=== PATIENT | female | born 1965 | race Two or more races ===

== ENCOUNTER → 2025-01-31 | Outpatient (CLI) | payer MEDICAID, SELFPAY ==
--- NOTE | 2025-01-31 14:15 | XR_ITS ---
Examination: Screening digital mammography, bilateral Computer aided detection 3-D breast Tomosynthesis, bilateral Date and time of exam: January 31, 2025 at 1348 hrs. Comparison May 06, 2016 Indication: Screening Technique: Nonmagnified MLO, CC views of the breasts to been obtained, reconstructed from 3-D Tomosynthesis images. R2 computer aided detection program utilized for evaluation of suspicious masses and/or abnormal calcifications. 3-D Tomosynthesis images obtained. Findings: The breasts are heterogeneously dense, which may appears small masses 25 mm focal asymmetry lower outer right breast anterior depth Grouped microcalcifications retroareolar region left breast Impression: BI-RADS Category 0: Incomplete: Need additional imaging evaluation Recommend follow-up spot tomographic views focal asymmetry lower outer right breast anterior depth, bilateral breast sonography to complete the workup Recommend follow-up spot magnification films of grouped microcalcifications retroareolar region left breast
== END | disposition home or self-care (01) ==
DX: Z12.31 Encounter for screening mammogram for malignant neoplasm of breast (principal); N64.89 Other specified disorders of breast; R92.8 Other abnormal and inconclusive findings on diagnostic imaging of breast
CPT/HCPCS: 77063; 77067

== ENCOUNTER 2025-03-02 11:35 | Emergency (ER) | payer MEDICAID, SELFPAY ==
[2025-03-02 11:36] VITALS: BMI 34.2
[2025-03-02 12:10] VITALS: BP 131/84; PULSE 82; RESP 18; TEMP 36.9; O2SAT 99
--- NOTE | 2025-03-02 12:34 | EKG_ITS ---
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
--- NOTE | 2025-03-02 12:34 | XR_ITS ---
Examination: PA chest single view TECHNIQUE: Upright PA chest single view Exam date and time: March 02, 2025 1327 hours INDICATIONS: Coughing shortness of breath wheezing beginning 3 weeks ago FINDINGS: Bibasilar and right middle lobe pneumonia Mild prominence left ventricle Mild vascular congestion IMPRESSION: Significant bibasilar and right middle lobe pneumonia
--- NOTE | 2025-03-02 12:35 | PD.EDRME ---
Rapid Medical Screening Exam RME Arrival date/time: 03/02/25 11:35 This is a 59-year-old female presents to the emergency department complaints of shortness of breath, chest pain x 3 days. I have greeted and performed a focused initial assessment of this patient. Initial appropriate labs ordered at this time. A comprehensive ED assessment and evaluation of the patient and analysis of all test and completion of medical decision making process will be conducted by additional ED provider. Chief Complaint: Abdominal Pain Time Seen by Provider: 03/02/25 12:16 Vital signs: Vital Signs Temperature 98.4 F 03/02/25 12:10 Pulse Rate 82 03/02/25 12:10 Respiratory Rate 18 03/02/25 12:10 Blood Pressure 131/84 H 03/02/25 12:10 Pulse Oximetry (%) 99 03/02/25 12:10 Oxygen Delivery Method Room Air 03/02/25 12:10
[2025-03-02 13:01] LABS: Basophils # (Auto) 0.1 Thou/mm3 (0.0-0.2); Basophils % (Auto) 1 % (0-2.5); Eosinophils # (Auto) 0.2 Thou/mm3 (0.0-0.5); Eosinophils % (Auto) 2 % (0-10); Hematocrit 45.1 % (36.0-46.0); Hemoglobin 15.6 g/dL (12.0-16.0); Immature Granulocytes % (Auto) 0 % (0-0); Immature Granulocytes Auto 0.02 Thou/mm3 (0.00-0.00); Lymphocytes # (Auto) 1.8 Thou/mm3 (1.0-4.8); Lymphocytes % (Auto) 23 % (10-50); Mean Corpuscular HGB Conc 34.6 g/dl (31.0-37.0); Mean Corpuscular Hemoglobin 30.2 pg (25.0-35.0); Mean Corpuscular Volume 87 fL (80-100); Monocytes # (Auto) 0.5 Thou/mm3 (0.0-0.8); Monocytes % (Auto) 6 % (0-12); Neutrophils # (Auto) 5.2 Thou/mm3 (1.8-7.7); Neutrophils % (Auto) 67 % (37-80); Nucleated Red Blood Cell % 0 /100 WBC (0); Platelet Count 235 Thou/mm3 (140-440); RDW Standard Deviation 41.4 fL (36.4-46.3); Red Blood Count 5.17 Miln/mm3 (4.00-5.20); White Blood Count 7.8 Thou/mm3 (3.6-11.0)
[2025-03-02 13:09] LABS: Partial Thromboplastin Time 24.8 Seconds (22.0-36.0); Prothrombin Time 11.4 Seconds (9.0-12.2)
[2025-03-02 13:14] LABS: B-Type Natriuretic Peptide 1102 pg/mL (0-100)
[2025-03-02 13:30] LABS: Alanine Aminotransferase 24 U/L (10-49); Albumin, Serum 4.3 gm/dL (3.5-5.0); Albumin/Globulin Ratio 1.6 (1.2-2.2); Alkaline Phosphatase 71 U/L (46-116); Anion Gap 8 (7-16); Aspartate Amino Transferase 15 U/L (0-34); BUN/Creatinine Ratio 21 Ratio (12-20); Blood Urea Nitrogen 17 mg/dL (9-23); Calcium 8.9 mg/dL (8.3-10.6); Calcium (Corrected) 8.9 mg/dL (8.5-10.1); Carbon Dioxide 24.5 mMol/L (20.0-31.0); Chloride 110 mMol/L (98-107); Creatinine (Component) 0.8 mg/dL (0.6-1.3); Estimated Creatinine Clearance 71.5 mL/min (>60); Globulin 2.7 gm/dL (2.3-3.5); Glucose 142 mg/dL (74-106); Lipase 39 U/L (12-53); Magnesium 1.9 mg/dL (1.6-2.6); Osmolality,Calculated 286 (275-295); Potassium 3.9 mMol/L (3.4-5.1); Sodium 142 mMol/L (136-145); Troponin I < 0.020 ng/mL (0.0-0.045); eGFR > 60 See Note
--- NOTE | 2025-03-02 13:50 | PD.EDSOB ---
ED SOB =RME/HPI General Chief Complaint: Abdominal Pain Stated Complaint: RUQ ABD PAIN WITH SWELLING X3 WEEKS Time Seen by Provider: 03/02/25 12:16 Arrival date/time: 03/02/25 11:35 RME / HPI RME / HPI Narrative: 59-year-old female patient with significant history of hypertension diabetes mellitus, came in for evaluation regarding shortness of breath. Patient's been having shortness of breath for the last 3 weeks, severity mild, worse with exertion and lying flat. Patient also complaining of swelling to bilateral lower extremity severity mild. Denies any chest pain denies any other complaints except for complaints of abdominal swelling. Denies any abdominal pain. No medications taken prior to arrival. Related Data Previous Rx's ?Medication ?Instructions ?Recorded lisinopril 20 mg tablet 20 mg PO QDAY #10 tabs 03/07/15 azithromycin 250 mg tablet See Rx Instructions PO .COMPLEX #6 03/02/25 (Zithromax Z-Hudson) tabs furosemide 20 mg tablet (Lasix) 20 mg PO QAM #10 tabs 03/02/25 potassium chloride 20 mEq 20 meq PO QDAY #10 tabs 03/02/25 tablet,extended release Allergies Allergy/AdvReac Type Severity Reaction Status Date / Time NKA Allergy Unknown Uncoded 03/02/25 11:41 No Known Allergies Allergy Unknown Uncoded 03/02/25 11:41 Review of Systems Review of Systems Narrative Review of Systems: Review of system reviewed and within normal limits except mentioned in HPI ED Exam Narrative Physical exam: VITAL SIGNS: Reviewed. GENERAL APPEARANCE: Alert and interactive, follows commands, no acute distress, HEAD AND FACE: Non-traumatic. ENT: PERRL, pink conjunctivitis, eyelid no trauma, Mucous membrane moist. NECK: Supple, nontender, no nuchal rigidity. CHEST: No tenderness, no crepitus, no paradoxical movement, no retractions. LUNGS: Clear, well ventilated, symmetric, no rales, no wheezing, no ronchi, no stridor, good breath sounds bilaterally. HEART: Regular rate, regular rhythm, no murmur, no gallops. ABDOMEN: Soft, positive bowel sounds, nondistended, no guarding, nontender, no rebound, no masses, RECTAL: Deferred. GENITAL: Deferred. NEUROLOGICAL: Gross motor function intact sensory function intact, Appropriate for age. MUSCULOSKELETAL: low back nontender, full range of motion. EXTREMITIES: Nontender, full range of motion. +1 bilateral lower extremity edema SKIN: Color pink, dry, no rash, no lacerations, no abrasions, no contusions. LYMPHATICS: Deferred. Course Quality Measures none Orders Category Date Time Status [employer] STAT Care 03/02/25 12:34 Completed EKG (ED ONLY) *Do not use* NOW Care 03/02/25 12:34 Completed Insert IV STAT Care 03/02/25 12:34 Completed EKG (ED Only) Stat Exams 03/02/25 12:34 Draft XR chest 1V portable Stat Exams 03/02/25 12:34 Completed B-Type Natriuretic Peptide Stat Lab 03/02/25 12:43 Completed CBC Stat Lab 03/02/25 12:43 Completed Comprehensive Metabolic Panel Stat Lab 03/02/25 12:43 Completed Lipase Stat Lab 03/02/25 12:43 Completed Magnesium Stat Lab 03/02/25 12:43 Completed Partial Thromboplastin Time Stat Lab 03/02/25 12:43 Completed Prothrombin Time with INR Stat Lab 03/02/25 12:43 Completed Troponin I Stat Lab 03/02/25 12:43 Completed Furosemide [Lasix] Med 03/02/25 13:49 Discontinued 40 mg PO X1 ONE Vital Signs Vital signs: Vital Signs Temperature 98.4 F 03/02/25 12:10 Pulse Rate 82 03/02/25 12:10 Respiratory Rate 18 03/02/25 12:10 Blood Pressure 131/84 H 03/02/25 12:10 Pulse Oximetry (%) 99 03/02/25 12:10 Oxygen Delivery Method Room Air 03/02/25 12:10 Shortness of Breath / Dyspnea MDM Narrative MDM Narrative:: 59-year-old female patient with significant history of hypertension diabetes mellitus, came in for evaluation regarding shortness of breath. Patient's been having shortness of breath for the last 3 weeks, severity mild, worse with exertion and lying flat. Patient also complaining of swelling to bilateral lower extremity severity mild. Denies any chest pain denies any other complaints except for complaints of abdominal swelling. Denies any abdominal pain. No medications taken prior to arrival. Patient's workup unremarkable except for a BNP of 1102 chest x-ray showed slight cardiomegaly with congestion no pleural effusion noted no infiltrates noted was also noted to have pneumonia. EKG showed normal sinus rhythm ventricular rate of 81 bpm, no ST segment elevation or depression noted Patient was given Lasix p.o. in the emergency room patient was also given Zithromax p.o. Patient data External records reviewed:: None Clinical information provided by:: patient Social determinants that could affect healthcare access:: none Patient has the following chronic illnesses:: Hypertension How is presenting disease/condition affected by chronic disease/condition?: exacerbated by Evaluation data The following diagnostics were reviewed and interpreted by me:: lab results, radiology exam(s) and EKG tracing(s) Lab and/or radiology exams considered but not ordered:: None Interpretation Summary: See results MDM Medications / Prescriptions Medications or Prescriptions considered but not ordered:: None Medication administrations:: Medication Administration History Discontinued Medications Furosemide (Furosemide 40 Mg Tablet) 40 mg PO X1 ONE Stop: 03/02/25 13:50 Last Admin: 03/02/25 14:05 Dose: 40 mg Documented By: OA Lasix Consultations Consultation(s) initiated? (list below): No Diagnosis Shortness of Breath Differential Diagnosis: acute exacerbation of chronic obstructive airways disease, congestive heart failure and community acquired pneumonia Most likely diagnosis given after review of the tests above:: Pneumonia Admission Indicated Admission indicated?: not indicated Explain why admission is indicated or not indicated:: Stable for discharge Admission Request Was there a request for admission?: No Disposition Plan Disposition Plan: Discharge Discharge Attestation Discharge Attestation: The patient was given an opportunity to ask questions and understood the discharge instructions. Discharge instructions specifically effects, indications for sooner follow up or return to the emergency department, and the expected course of current diagnosis. Patient condition: Stable Discharge Plan Plan Patient Disposition: HOME (Self Care) Disposition Comment: Stable Prescriptions/Referrals Prescriptions/Med Rec: New azithromycin [Zithromax Z-Hudson] 250 mg tablet See Rx Instructions .ROUTE .COMPLEX Qty: 6 0RF Rx Instructions: For 250 mg dose pack: take 500 mg today (day 1), then 250 mg for 4 days (days 2-5) furosemide [Lasix] 20 mg tablet 20 mg PO QAM Qty: 10 0RF potassium chloride 20 mEq tablet extended release 20 meq PO QDAY Qty: 10 0RF No Action lisinopril 20 MG tablet 20 mg PO QDAY Qty: 10 0RF Problem List Clinical Impression: Community acquired pneumonia, Chest congestion Patient/Caregiver Discharge Instructions Discharge Activity: activity as tolerated Education Materials: What Is Pneumonia? Additional Instructions: Thank you for the opportunity for serving you today. You are stable for discharged . You are advised to: Follow-up with your PCP in 1 to 2 days Return to ED for worsening of symptoms Take medication as prescribed Print Language: Georgian Stand Alone Forms: Barb Award Info., Patient Portal Info Letter
[2025-03-02 14:05] VITALS: BP 131/84; PULSE 82
[2025-03-02] MEDS: Furosemide 40 MG TABLET PO (14:05)
== END 2025-03-02 14:38 | disposition home or self-care (01) ==
LOC: SERX 14:25
PROVIDERS: Nurse Practitioner Primary Care; Emergency Provider Emergency Medicine
DX: J18.9 Pneumonia, unspecified organism (principal); I11.9 Hypertensive heart disease without heart failure; I44.7 Left bundle-branch block, unspecified
CPT/HCPCS: 36415; 71045; 80053; 83690; 83735; 83880; 84484; 85025; 85610; 85730; 93005; 99283; A9270

== ENCOUNTER → 2025-04-05 | Outpatient (CLI) | payer MEDICAID, SELFPAY ==
--- NOTE | 2025-04-05 | XR_ITS ---
Examination: PA lateral chest 2 views TECHNIQUE: Upright PA lateral chest 2 views April 05, 2025 1129 hours Comparison March 02, 2025 INDICATIONS: Coughing shortness of breath beginning 2 weeks ago. FINDINGS: Right middle lobe and mild right basilar pneumonia Mild prominence cardiac contour IMPRESSION: Right middle lobe and right basilar pneumonia
== END | disposition home or self-care (01) ==
DX: J18.9 Pneumonia, unspecified organism (principal)
CPT/HCPCS: 71046

== ENCOUNTER 2025-04-10 19:40 | Emergency (ER) | payer MEDICAID, SELFPAY ==
[2025-04-10 19:41] VITALS: BMI 34.2
--- NOTE | 2025-04-10 20:02 | PD.EDURI ---
Upper Respiratory Inf. RME/HPI General Chief Complaint: Flu Like Symptoms Stated Complaint: COUGH, DIFFICULTY BREATHING Time Seen by Provider: 04/10/25 20:03 Arrival date/time: 04/10/25 19:40 RME / HPI RME / HPI Narrative: This section includes all my notes and documentations, including HPI, PE, and ED course. Imer Latif MD HPI: 59yo female brought in by her daughter presents to the ED for a chief complaint of shortness of breath. Daughter states the patient has been retaining water , reporting the patient is short of breath and has been unable to sleep for the last 5 nights. Daughter states the patient has to sleep sitting up. Daughter states the patient's PCP discontinued the patient's water pills due to having an upcoming procedure with her shipping specialist. Patient denies any fever, chills, BLE swelling or any other associated symptoms. 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 No other complaints reported. ROS: All negative except as documented in HPI. Physical Exam: General: Alert and oriented. No acute distress wearing still. Eyes: Conjunctivae and lids clear. ENT: No nasal congestion. Neck: Supple. No JVD. Heart: RRR. Lungs: No respiratory distress. Good air movement with bibasilar rales. Abdomen: Soft and nontender. Legs: No clubbing, cyanosis, edema. Skin: Warm and dry. Neuro: Alert and oriented X 3. I reviewed all diagnostic test results. My interpretation of the EKG is sinus rhythm with no acute ST?T changes. My review of the CT chest abdomen pelvis report is CHF. Blood tests are unremarkable except for BNP 2054. Bedside COVID and Influenza are negative. At this point, diagnoses include congestive heart failure. Treatment here included Lasix and Diflucan. Recommended outpatient treatment. Based on my best medical judgment, made decision no further evaluation or treatment indicated at this time. Patient understands and agrees to the discharge instructions customized and printed, see below. Discharge Instructions from Dr. Latif: --After extensive evaluation, there is no immediately life-threatening condition. --Your symptoms are due to CHF (congestive heart failure) or fluid in your lungs. See attached handout. CT scan and blood tests were otherwise normal. No more pneumonia. --When you were younger, your heart was strong and pumped everything out. Now that your heart is getting weaker, it?s not able to pump all the blood/fluid out of the heart when it pumps. So the remaining blood/fluid in the heart goes back into your lungs. And into feet/legs by gravity. --To help urinate out the extra fluid, take Lasix 20 mg every morning until cleared by a doctor taking care of you. --When sitting or resting and sleeping, elevate the head of bed and elevate your feet/ankles above your waist level. This is extremely important because this will help get the extra fluid back into your circulation so you can urinate out the extra fluid. --Limit all oral fluid to less than 4 cups per 24 hours for 3 days. This is extremely important because we need to decrease the extra fluid in your lungs. Then don't go out of your way to drink too much fluid--only when your body tells you to drink. --Eat a banana daily because Lasix can lower your potassium level. -Take Diflucan for fungus/yeast infection from your recent antibiotics. --See your private doctor on 04/12/2025 for recheck and further care. Ask to help you get more tests for your heart that cannot be done here in the ER. Such as Holter Monitor (cardiac monitoring at home from a day to even a month), heart stress test (on treadmill or with medication), echocardiogram (imaging of your heart structures), heart catherization (checking for blockages in your heart arteries), and a referral to see a Maintenance Helper Utility Engineer. Ask to review all test results and official radiology reports, to make sure you receive all necessary follow-ups and monitoring. Ask for help until you are completely better. --Seek immediate medical care with worsening or with any concerns. Imer Latif MD Related Data Previous Rx's ?Medication ?Instructions ?Recorded lisinopril 20 mg tablet 20 mg PO QDAY #10 tabs 03/07/15 azithromycin 250 mg tablet See Rx Instructions PO .COMPLEX #6 03/02/25 (Zithromax Z-[place]udson) tabs furosemide 20 mg tablet (Lasix) 20 mg PO QAM #10 tabs 03/02/25 potassium chloride 20 mEq 20 meq PO QDAY #10 tabs 03/02/25 tablet,extended release fluconazole 200 mg tablet 200 mg PO QDAY 5 days #5 tabs 04/10/25 (Diflucan) furosemide 20 mg tablet (Lasix) 20 mg PO QDAY #30 tabs 04/10/25 Allergies Allergy/AdvReac Type Severity Reaction Status Date / Time NKA Allergy Unknown Uncoded 03/02/25 11:41 No Known Allergies Allergy Unknown Uncoded 03/02/25 11:41 Review of Systems Review of Systems Systems Reviewed: All systems reviewed, normal except as documented Past Medical History Social History SMOKING STATUS: Never smoker ED Exam Narrative Physical exam: As noted in HPI. Course Course Course Narrative: CXR is ordered for determining the etiology of shortness of breath. Quality Measures none Orders Category Date Time Status Bedside COVID-19 Antigen Test NOW Care 04/10/25 20:04 Active Bedside Influenza A&B Antigen Test NOW Care 04/10/25 20:04 Completed EKG (ED ONLY) *Do not use* NOW Care 04/10/25 20:[address] chest abdomen pelvis wo Stat Exams 04/10/25 20:05 Completed EKG (ED Only) Stat Exams 04/10/25 20:05 Draft BNP [B-Type Natriuretic Peptide] Stat Lab 04/10/25 20:32 Completed Bilirubin,Direct Stat Lab 04/10/25 20:32 Completed CBC Stat Lab 04/10/25 20:32 Completed CMP [Comprehensive Metabolic Panel] Stat Lab 04/10/25 20:32 Completed Free T4 (Free Thyroxine) Stat Lab 04/10/25 20:32 Completed Magnesium Stat Lab 04/10/25 20:32 Completed TSH [Thyroid Stimulating Hormone] Stat Lab 04/10/25 20:32 Completed Troponin I Stat Lab 04/10/25 20:32 Completed Fluconazole [Diflucan] Med 04/10/25 21:39 Discontinued 200 mg PO X1 ONE Furosemide [Lasix] Med 04/10/25 21:39 Discontinued 40 mg PO X1 ONE Vital Signs Vital signs: Vital Signs Temperature 98.5 F 04/10/25 20:03 Pulse Rate 95 04/10/25 20:03 Respiratory Rate 22 H 04/10/25 20:03 Blood Pressure 144/76 H 04/10/25 20:03 Pulse Oximetry (%) 96 04/10/25 20:03 Oxygen Delivery Method Room Air 04/10/25 20:03 Upper Respiratory Infection MDM Narrative MDM Narrative:: Scribe Attestation: 04/10/25 Mayelin Rabago am scribing for and in the presence of Dr. Latif. 59yo female brought in by her daughter presents to the ED for a chief complaint of shortness of breath. Daughter states the patient has been retaining water , reporting the patient is short of breath and has been unable to sleep for the last 5 nights. Daughter states the patient has to sleep sitting up. Daughter states the patient's PCP discontinued the patient's water pills due to having an upcoming procedure with her shipping specialist. Patient denies any fever, chills, BLE swelling or any other associated symptoms. 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 No other complaints reported. Patient data External records reviewed:: [facility] previous records (Per chart review, patient was seen here on 03/02/25 for chest congestion.) Clinical information provided by:: patient Social determinants that could affect healthcare access:: none Patient has the following chronic illnesses:: none How is presenting disease/condition affected by chronic disease/condition?: no chronic disease Evaluation data The following diagnostics were reviewed and interpreted by me:: lab results, radiology exam(s) and EKG tracing(s) (My interpretation of the EKG is: Sinus rhythm (86 bpm) with right BBB and nonspecific ST-T changes. Imer Latif MD) Lab and/or radiology exams considered but not ordered:: none Interpretation Summary: I reviewed all diagnostic test results. My interpretation of the EKG is sinus rhythm with no acute ST?T changes. My review of the CT chest abdomen pelvis report is CHF. Blood tests are unremarkable except for BNP 5. Bedside COVID and Influenza are negative. Medications / Prescriptions Medications or Prescriptions considered but not ordered:: none Medication administrations:: Medication Administration History Discontinued Medications Fluconazole (Fluconazole 100 Mg Tablet) 200 mg PO X1 ONE Stop: 04/10/25 21:40 Furosemide (Furosemide 40 Mg Tablet) 40 mg PO X1 ONE Stop: 04/10/25 21:40 Lasix, Diflucan Consultations Consultation(s) initiated? (list below): No Diagnosis Upper Respiratory Differential Diagnosis: upper respiratory infection, viral infection, bronchitis, influenza and other (COVID, pneumonia, CHF) Most likely diagnosis given after review of the tests above:: Congestive heart failure Admission Indicated Admission indicated?: not indicated Explain why admission is indicated or not indicated:: With no severe illness, there was no indication for admission. Admission Request Was there a request for admission?: No Disposition Plan Disposition Plan: Discharge Discharge Attestation Discharge Attestation: The patient and all family members were given an opportunity to ask questions and understood the discharge instructions. Discharge instructions specifically effects, indications for sooner follow up or return to the emergency department, and the expected course of current diagnosis. Patient condition: Stable Discharge Plan Plan Patient Disposition: HOME (Self Care) Prescriptions/Referrals Prescriptions/Med Rec: New furosemide [Lasix] 20 mg tablet 20 mg PO QDAY Qty: 30 1RF fluconazole [Diflucan] 200 mg tablet 200 mg PO QDAY 5 Days Qty: 5 0RF No Action lisinopril 20 MG tablet 20 mg PO QDAY Qty: 10 0RF azithromycin [Zithromax Z-[place]] 250 mg tablet See Rx Instructions .ROUTE .COMPLEX Qty: 6 0RF Rx Instructions: For 250 mg dose pack: take 500 mg today (day 1), then 250 mg for 4 days (days 2-5) furosemide [Lasix] 20 mg tablet 20 mg PO QAM Qty: 10 0RF potassium chloride 20 mEq tablet extended release 20 meq PO QDAY Qty: 10 0RF Referrals: No Primary/Family,Physician [Primary Care Provider] - In 1 week Problem List Clinical Impression: Congestive heart failure Patient/Caregiver Discharge Instructions Discharge Activity: activity as tolerated Education Materials: ED CHF Left Side Additional Instructions: Discharge Instructions from Dr. Latif: --After extensive evaluation, there is no immediately life-threatening condition. --Your symptoms are due to CHF (congestive heart failure) or fluid in your lungs.? See attached handout. CT scan and blood tests were otherwise normal. No more pneumonia. --When you were younger, your heart was strong and pumped everything out.? Now that your heart is getting weaker, it?s not able to pump all the blood/fluid out of the heart when it pumps.? So the remaining blood/fluid in the heart goes back into your lungs.? And into feet/legs by gravity.? --To help urinate out the extra fluid, take Lasix 20 mg every morning until cleared by a doctor taking care of you.?? --When sitting or resting and sleeping, elevate the head of bed and elevate your feet/ankles above your waist level.? This is extremely important because this will help get the extra fluid back into your circulation so you can urinate out the extra fluid. --Limit all oral fluid to less than 4 cups per 24 hours for 3 days.? This is extremely important because we need to decrease the extra fluid in your lungs.? Then don't go out of your way to drink too much fluid--only when your body tells you to drink.?? --Eat a banana daily because Lasix can lower your potassium level.?? -Take Diflucan for fungus/yeast infection from your recent antibiotics. --See your private doctor on 04/12/2025 for recheck and further care.?? Ask to help you get more tests for your heart that cannot be done here in the ER.? Such as Holter Monitor (cardiac monitoring at home from a day to even a month), heart stress test (on treadmill or with medication), echocardiogram (imaging of your heart structures), heart catherization (checking for blockages in your heart arteries), and a referral to see a Maintenance Helper Utility Engineer.? Ask to review all test results and official radiology reports, to make sure you receive all necessary follow-ups and monitoring. Ask for help until you are completely better. --Seek immediate medical care with worsening or with any concerns.? Instrucciones de kathy del Dr. Latif: --Tras garth evaluaci?n exhaustiva, no se observa ninguna afecci?n que ponga en peligro holcomb bogdan de inmediato. --Mely s?ntomas se deben a insuficiencia card?monet congestiva (ICC) o a la presencia de l?quido en los pulmones. Consulte el folleto adjunto. La tomograf?a computarizada y los an?lisis de uzair resultaron normales. No presenta neumon?a. --Cuando era m?s joven, holcomb coraz?n era alexander y bombeaba todo el l?quido. Ahora que holcomb coraz?n se est? debilitando, no puede bombear toda la uzair/l?quido del coraz?n cuando bombea. Por lo tanto, la uzair/l?quido restante en el coraz?n regresa a los pulmones y a los pies/piernas por gravedad. --Para facilitar la eliminaci?n del l?quido sobrante en la orina, tome Lasix 20 mg todas las ma?anas hasta que el m?dico que lo atienda se lo autorice. --Al sentarse, descansar o dormir, eleve la cabecera de la cama y los pies/tobillos por encima del nivel de la cintura. [place] es extremadamente importante porque ayudar? a que el exceso de l?quido vuelva a la circulaci?n para que pueda orinarlo. --Limite todos los l?quidos orales a menos de 4 tazas cada 24 horas ramona 3 d?as. [place] es extremadamente importante porque necesitamos disminuir el exceso de l?quido en mely pulmones. Luego, no se esfuerce por beber demasiado l?quido; solo cuando holcomb cuerpo se lo indique. --Coma un pl?david al d?a porque Lasix puede reducir holcomb nivel de potasio. -[place] Diflucan para la infecci?n por hongos/levaduras causada por mely antibi?ticos recientes. --Consulte a holcomb m?dico privado el 12/04/2025 para un nuevo control y atenci?n adicional. [place] ayuda para realizar m?s pruebas para holcomb coraz?n que no se pueden realizar aqu? en la dashawn de emergencias. Aries un Holter (monitorizaci?n card?monet en casa desde un d?a hasta un mes), garth prueba de esfuerzo card?aco (en cinta o con medicaci?n), un ecocardiograma (im?genes de las estructuras card?acas), un cateterismo card?aco (para detectar obstrucciones en las arterias card?acas) y garth derivaci?n a un cardi?logo. [place] la revisi?n de todos los resultados de las pruebas y los informes radiol?gicos oficiales para asegurarse de recibir todos los seguimientos y la monitorizaci?n necesarios. [place] ayuda hasta que se recupere por completo. --Busque atenci?n m?dica inmediata si presenta un empeoramiento o si tiene alguna inquietud. Print Language: Korean Stand Alone Forms: Barb Award Info., Patient Portal Info Letter
[2025-04-10 20:03] VITALS: BP 144/76; PULSE 95; RESP 22; TEMP 36.9; O2SAT 96
--- NOTE | 2025-04-10 20:05 | EKG_ITS ---
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
--- NOTE | 2025-04-10 20:05 | XR_ITS ---
Examination: CT chest, without intravenous contrast. CT abdomen, without intravenous contrast. CT pelvis, without intravenous contrast. 2-D sagittal and coronal reconstructions. 3-D reconstructions. Date and time of exam:April 10, 20252009 hours INDICATIONS: Coughing chest pain and shortness of breath abdominal pain today CTDI vol (mgy) 10.1 DLP (MGycm)675 Technique: Multiple CT images, 3.0 mm slice thickness, obtained chest, abdomen, pelvis, with the high-resolution 64 slice scanner.. Sagittal and coronal 2-D reconstructions are obtained. 3-D reconstructions Low dose protocols were performed. One or more of the following dose reduction techniques were used; automated exposure control, adjustment of the mA and/or KV according to patient size, use of iterative reconstruction technique. Findings: No thoracic aortic aneurysm dilatation Pulmonary artery segments are not enlarged Mild enlargement cardiac contour with prominent vascular congestion and bilateral septal pulmonary edema, small bilateral pleural effusions 8 mm 6 mm pulmonary nodules right upper lobe 4 mm pulmonary nodule right middle lobe No liver and splenic lesion Fat-containing left adrenal mass 9 cm No renal or adrenal calculi, no hydronephrosis Aorta normal size No bowel obstruction Normal appendix Contracted urinary bladder The osseous structures are intact Impression: Mild CHF Noncalcified pulmonary nodules as above, with this study as baseline recommend 3-6 month follow-up CT chest without contrast Recommend MRI abdomen follow up pre and post contrast to assess large partially fat-containing left adrenal mass Normal appendix No bowel obstruction
[2025-04-10 20:38] LABS: Basophils % (Auto) 1 % (0-2.5); Eosinophils # (Auto) 0.2 Thou/mm3 (0.0-0.5); Eosinophils % (Auto) 3 % (0-10); Hematocrit 41.3 % (36.0-46.0); Hemoglobin 14.2 g/dL (12.0-16.0); Immature Granulocytes % (Auto) 0 % (0-0); Immature Granulocytes Auto 0.02 Thou/mm3 (0.00-0.00); Lymphocytes # (Auto) 2.1 Thou/mm3 (1.0-4.8); Lymphocytes % (Auto) 26 % (10-50); Mean Corpuscular HGB Conc 34.4 g/dl (31.0-37.0); Mean Corpuscular Hemoglobin 29.8 pg (25.0-35.0); Mean Corpuscular Volume 87 fL (80-100); Monocytes # (Auto) 0.6 Thou/mm3 (0.0-0.8); Monocytes % (Auto) 8 % (0-12); Neutrophils # (Auto) 4.9 Thou/mm3 (1.8-7.7); Neutrophils % (Auto) 63 % (37-80); Nucleated Red Blood Cell % 0 /100 WBC (0); Platelet Count 260 Thou/mm3 (140-440); RDW Standard Deviation 43.1 fL (36.4-46.3); Red Blood Count 4.77 Miln/mm3 (4.00-5.20); White Blood Count 7.9 Thou/mm3 (3.6-11.0)
[2025-04-10 20:57] LABS: B-Type Natriuretic Peptide 2055 pg/mL (0-100)
[2025-04-10 21:01] LABS: Alanine Aminotransferase 30 U/L (10-49); Albumin, Serum 4.4 gm/dL (3.5-5.0); Anion Gap 8 (7-16); Aspartate Amino Transferase 20 U/L (0-34); BUN/Creatinine Ratio 14 Ratio (12-20); Bilirubin,Direct 0.2 mg/dL (0.0-0.3); Bilirubin,Total 0.7 mg/dL (0.3-1.2); Blood Urea Nitrogen 17 mg/dL (9-23); Carbon Dioxide 27.7 mMol/L (20.0-31.0); Chloride 105 mMol/L (98-107); Creatinine (Component) 1.2 mg/dL (0.6-1.3); Estimated Creatinine Clearance 47.6 mL/min (>60); Globulin 2.7 gm/dL (2.3-3.5); Glucose 151 mg/dL (74-106); Magnesium 2.1 mg/dL (1.6-2.6); Osmolality,Calculated 285 (275-295); Potassium 4.9 mMol/L (3.4-5.1); Sodium 141 mMol/L (136-145); Total Protein 7.1 gm/dL (5.7-8.2); Troponin I < 0.020 ng/mL (0.0-0.045); eGFR 52 See Note
[2025-04-10 21:02] LABS: Albumin/Globulin Ratio 1.6 (1.2-2.2); Alkaline Phosphatase 78 U/L (46-116); Thyroid Stimulating Hormone 3.14 uIU/mL (0.55-4.78)
[2025-04-10 22:09] VITALS: BP 124/69; PULSE 82; RESP 16; TEMP 36.6; O2SAT 97
[2025-04-10 22:28] VITALS: BP 124/69; PULSE 82
[2025-04-10] MEDS: Furosemide 40 MG TABLET PO (22:28)
[2025-04-10] MEDS: FLUCONAZOLE 100 MG TABLET 200 MG PO (22:28)
== END 2025-04-10 22:31 | disposition home or self-care (01) ==
PROVIDERS: Emergency Provider Emergency Medicine
DX: I50.9 Heart failure, unspecified (principal); I44.7 Left bundle-branch block, unspecified
CPT/HCPCS: 36415; 71250; 74176; 80053; 82248; 83735; 83880; 84439; 84443; 84484; 85025; 87400; 87811; 93005; 99284; A9270

== ENCOUNTER → 2025-04-13 | Outpatient (CLI) | payer MEDICAID, SELFPAY ==
--- NOTE | 2025-04-13 09:00 | XR_ITS ---
Examination: Breast ultrasound complete, bilateral Date and time of exam: April 13, 2025 0909 hours INDICATIONS: Mammogram January 31, 2025 25 mm focal asymmetry lower outer right breast, grouped microcalcifications retroareolar region left breast Technique: Real-time grayscale ultrasonographic imaging bilateral breasts, including all 4 quadrants as well as nipple retroareolar and axillary regions. Findings: Sonographic images right and left breast demonstrated no cystic or solid masses IMPRESSION: BI-RADS Category 1: Negative studies
--- NOTE | 2025-04-13 10:15 | XR_ITS ---
Examination: Diagnostic digital mammography, bilateral Computer aided detection 3-D breast Tomosynthesis, bilateral Date and time of exam: April 13, 2025 0929 hours INDICATIONS: Mammogram January 31, 2025 focal asymmetry lower outer right breast, microcalcifications retroareolar region left breast Technique: Nonmagnified MLO, CC views of the breasts to been obtained, reconstructed from 3-D Tomosynthesis images. R2 computer aided detection program utilized for evaluation of suspicious masses and/or abnormal calcifications. 3-D Tomosynthesis images obtained. Findings: The breasts are heterogeneously dense, which may obscure small masses No suspicious masses confirmed on the spot compression right tomographic views Benign vascular calcifications left breast No suspicious microcalcifications Impression: BI-RADS Category 2: Benign findings Recommend yearly follow-up mammography.
== END | disposition home or self-care (01) ==
DX: R92.323 Mammographic fibroglandular density, bilateral breasts (principal); N64.89 Other specified disorders of breast
CPT/HCPCS: 76641; 77062; 77066; G0279

== ENCOUNTER → 2025-04-28 | Outpatient (CLI) | payer MEDICAID, SELFPAY ==
[2025-04-28 11:33] LABS: Basophils # (Auto) 0.1 Thou/mm3 (0.0-0.2); Basophils % (Auto) 1 % (0-2.5); Eosinophils # (Auto) 0.3 Thou/mm3 (0.0-0.5); Eosinophils % (Auto) 3 % (0-10); Hemoglobin 17.2 g/dL (12.0-16.0); Immature Granulocytes % (Auto) 0 % (0-0); Immature Granulocytes Auto 0.02 Thou/mm3 (0.00-0.00); Lymphocytes # (Auto) 2.4 Thou/mm3 (1.0-4.8); Lymphocytes % (Auto) 31 % (10-50); Mean Corpuscular HGB Conc 34.4 g/dl (31.0-37.0); Mean Corpuscular Hemoglobin 30.1 pg (25.0-35.0); Mean Corpuscular Volume 88 fL (80-100); Monocytes # (Auto) 0.6 Thou/mm3 (0.0-0.8); Monocytes % (Auto) 7 % (0-12); Neutrophils # (Auto) 4.4 Thou/mm3 (1.8-7.7); Neutrophils % (Auto) 57 % (37-80); Nucleated Red Blood Cell % 0 /100 WBC (0); Platelet Count 218 Thou/mm3 (140-440); RDW Standard Deviation 41.6 fL (36.4-46.3); Red Blood Count 5.71 Miln/mm3 (4.00-5.20); White Blood Count 7.7 Thou/mm3 (3.6-11.0)
[2025-04-28 11:41] LABS: Prothrombin Time 11.1 Seconds (9.0-12.2)
[2025-04-28 11:52] LABS: Albumin, Serum 4.6 gm/dL (3.5-5.0); Anion Gap 9 (7-16); BUN/Creatinine Ratio 15 Ratio (12-20); Blood Urea Nitrogen 15 mg/dL (9-23); Calcium 9.4 mg/dL (8.3-10.6); Calcium (Corrected) 9.4 mg/dL (8.5-10.1); Carbon Dioxide 30.9 mMol/L (20.0-31.0); Chloride 102 mMol/L (98-107); Glucose 147 mg/dL (74-106); Osmolality,Calculated 286 (275-295); Phosphorous 4.3 mg/dL (2.4-5.1); Potassium 4.7 mMol/L (3.4-5.1); Sodium 142 mMol/L (136-145); eGFR > 60 See Note
== END | disposition home or self-care (01) ==
LOC: COPL 11:02
PROVIDERS: PCP Nurse Practitioner Family; Referring Provider Internal Medicine Cardiovascular Disease; Visit Provider Internal Medicine Cardiovascular Disease
DX: Z01.89 Encounter for other specified special examinations (principal)
CPT/HCPCS: 36415; 80069; 85025; 85610